=== PATIENT | female | born 1980 | race Caucasian/White ===

== ENCOUNTER 2017-01-11 23:57 | Emergency (ER) | payer OTHER ==
[2017-01-12] VITALS: BP 145/103; PULSE 87; RESP 18; O2SAT 100
--- NOTE | 2017-01-12 01:41 | ED.REPORT ---
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 She reports some pain with movement as well as swelling but denies fever chills, or associated signs of infection. The patient has not received a vaccination for rabies and the cats vaccinations are unknown. Nursing Notes Stated Complaint: CAT BITE AT WORK Chief Complaint: General Complaint Nursing Notes Reviewed: Yes Allergies: Coded Allergies: metoclopramide (Verified Allergy, Unknown, Hives, 01/12/17) doxycycline (Verified Adverse Reaction, Unknown, Nausea,Vomiting, 01/12/17) General Time Seen by MD: 00:55 Chief Complaint Cat bite Hx Obtained From: Patient Arrived By: Walk-in Onset Occurred: 9 - 12 hours ago Context of Onset: Occurred at work, Vaccinations unknown Symptom Duration: Since onset Location: : Hand left Quality: Painful Severity: Current: Mild Severity: Maximum: Mild Context: Immunizations Immunizations: All up to date Recent Healthcare: No recent doctor visit, No recent hospitalization Similar Sx Previous: No Past Medical History Past Medical History Reports: Hypertension Past Surgical History None Stated Smoking History Unknown if Ever Smoker Ambulatory Status Independent Review of Systems Constitutional: Denies: Chills, Fatigue, Fever Skin: Reports Swelling, Denies Itching, Denies Rash Complete sys rev & neg: except as marked. Physical Exam Vital Signs Vital Signs (First) Date Time Temp Pulse Resp B/P Pulse Ox O2 Delivery O2 Flow Rate FiO2 01/12/17 00:00 36.4 87 18 145/103 100 Room Air Initial VS: Reviewed, Vital signs normal Head / Eyes: Atraumatic, Normocephalic, PERRL Respiratory: Breath sounds normal, No respiratory distress Extremities: Vascular intact, Neuro intact Neurologic: Alert, Oriented Psychiatric: Mood/affect normal, Behavior normal, Normal thought content Skin: No rash, Warm, Dry Wrist / Hand: Atraumatic, Neurologic intact, Vascular intact Finger Exam : Finger Exam: Positive: Erythema present, Finger name... (L middle), Swelling present... (Mild), Tenderness present... (Mild) Trauma / Burn / Environmental: Positive: Puncture wound 2 puncture wounds of the denis surface distal to the DIP joint. No sign of tenosynovitis. Tenderness to palpation along puncture sites. Re-Eval/Medical Decision Old records Re-Evaluation/Progress : Time of Eval: 02:16 Re-Evaluation/Progress Note: The patient understands and agrees with the plan. All questions have been answered Discharge & Departure Impression: Primary Impression: Cat bite of hand Encounter type: initial encounter Laterality: left Qualified Code: S61.452A - Open bite of left hand, initial encounter Disposition: Home Discharge Condition All VS Reviewed: Yes Condition: Stable Patient Instructions: Animal Bite (ED) Additional Instructions: Bacitracin and Band-Aid daily dressing change. Amoxicillin clavulanate ( Augmentin) 875, 1 pill twice daily, #14 dispensed. Follow-up as needed if there is any evidence of infection. Referrals: Dawit Mejia MD (PCP) Dex Mireles MD Jan 12, 2017 01:40 Janes Zurita Jan 12, 2017 01:45
[2017-01-12 02:38] VITALS: BP 141/97; PULSE 80; RESP 18; O2SAT 100
[2017-01-12] MEDS ORDERED: _HYDROcodone/APAP 5-325 mg Tablet PO PRN (02:40)
[2017-01-12] MEDS ORDERED: _Amoxicillin-Clavulanate 875-125 mg Tablet PO SCH (08:30)
== END 2017-01-12 02:58 | disposition home or self-care (01) ==
LOC: SED 23:57
DX: S61.253A Open bite of left middle finger without damage to nail, initial encounter (principal); W55.01XA Bitten by cat, initial encounter; Y93.89 Activity, other specified; Y92.89 Other specified places as the place of occurrence of the external cause; Y99.0 Civilian activity done for income or pay; I10 Essential (primary) hypertension; Z88.8 Allergy status to other drugs, medicaments and biological substances